=== PATIENT | male | born 1935 | race Caucasian/White ===

== ENCOUNTER 2017-07-14 10:30 | Inpatient (IN) ==
[2017-07-14] MEDS ORDERED: DIPH/TET/ACEL PERT BOOSTER VACCINE 0.5 ML VIAL IM ONE ×2 (10:52→11:42)
[2017-07-14 11:45] LABS: Basophils % 0.3 % (0.0-0.8); Hematocrit 32.1 VOL% (42.0-52.0); Hemoglobin 10.7 GM/DL (14.0-18.0); Immature Granulocytes % 0.9 %; Immature Granulocytes Absolute 0.14 #; Lymphocytes # 1.3 10*3/uL (1.4-4.0); Lymphocytes % 8.1 % (21.2-54.2); Mean Corpuscular HGB Conc 33.3 GM/DL (32-36); Mean Corpuscular Hemoglobin 32 PG (27-34); Mean Platelet Volume 9.2 FL (9.6-12.0); Monocytes % 6.5 % (1.7-12.7); Neutrophils # 13.2 10*3/uL (1.4-7.4); Neutrophils % 84.2 % (38.7-73.9); Platelet Count 228 T/CUMM (130-400); Red Blood Count 3.38 MC/CUMM (3.8-5.5); Red Cell Distribution Width 13.2 % (9.3-17.3); White Blood Count 15.6 T/CUMM (4-12)
[2017-07-14 11:57] LABS: INR 1.1; PT Patient Result 11.1 SECS; Partial Thromboplastin Time 25.2 SECS (0-40)
[2017-07-14 12:10] LABS: Albumin 4.1 G/DL (3.4-5.0); Bilirubin,Total 0.6 MG/DL (0.2-1.0); Osmolality,Calculated 289.1 MOS/KG (273-304); Potassium 3.7 MMOL/L (3.5-5.1); Total Protein 6.2 G/DL (6.4-8.3)
[2017-07-14] MEDS ORDERED: SODIUM CHLORIDE 0.9% 1,000 ML IV STA (12:10)
[2017-07-14] MEDS ORDERED: ONDANSETRON 4 MG/2 ML VIAL IV PRN (15:30)
[2017-07-14] MEDS ORDERED: ACETAMINOPHEN 325 MG TABLET PO PRN (15:30)
[2017-07-14] MEDS: oxyCODONE/ACETAMINOPHEN 5-325 MG TABLET PO PRN (17:30)
[2017-07-14] MEDS: SODIUM CHLORIDE 0.9% 1,000 ML IV SCH (17:31)
[2017-07-14] MEDS: GEMFIBROZIL 600 MG TABLET PO SCH (20:18)
[2017-07-14] MEDS: NIACIN ER 500 MG TABLET PO SCH (20:18)
[2017-07-14] MEDS: TAMSULOSIN 0.4 MG CAPSULE PO SCH (20:18)
[2017-07-14] MEDS: DOCUSATE SODIUM 100 MG CAPSULE PO SCH (20:18)
[2017-07-14] MEDS: GABAPENTIN 100 MG CAPSULE PO SCH (20:18)
[2017-07-14 21:51] LABS: Hematocrit 25.2 VOL% (42.0-52.0); Hemoglobin 8.4 GM/DL (14.0-18.0)
[2017-07-14] MEDS: fentaNYL 75 MCG/HR PATCH TRANSDERM SCH (22:01)
[2017-07-15] MEDS: oxyCODONE/ACETAMINOPHEN 5-325 MG TABLET PO PRN ×4 (00:11→22:00)
[2017-07-15] MEDS: SODIUM CHLORIDE 0.9% 1,000 ML IV SCH ×3 (01:36→18:30)
[2017-07-15] MEDS: LEVOTHYROXINE 125 MCG TABLET PO SCH (06:53)
[2017-07-15 07:20] LABS: Hematocrit 22.4 VOL% (42.0-52.0); Hemoglobin 7.5 GM/DL (14.0-18.0)
[2017-07-15 07:23] LABS: Basophils % 0.4 % (0.0-0.8); Eosinophils # 0.1 10*3/uL (0.0-0.87); Eosinophils % 1.5 % (0.00-10.9); Hematocrit 22.6 VOL% (42.0-52.0); Hemoglobin 7.4 GM/DL (14.0-18.0); Immature Granulocytes % 0.7 %; Immature Granulocytes Absolute 0.05 #; Lymphocytes # 2.1 10*3/uL (1.4-4.0); Lymphocytes % 29.5 % (21.2-54.2); Mean Corpuscular HGB Conc 32.7 GM/DL (32-36); Mean Corpuscular Hemoglobin 32 PG (27-34); Mean Corpuscular Volume 97.8 FL (87-102); Mean Platelet Volume 9.7 FL (9.6-12.0); Monocytes # 0.6 10*3/uL (0.11-0.8); Monocytes % 8.3 % (1.7-12.7); Neutrophils # 4.3 10*3/uL (1.4-7.4); Neutrophils % 59.6 % (38.7-73.9); Platelet Count 145 T/CUMM (130-400); Red Blood Count 2.31 MC/CUMM (3.8-5.5); Red Cell Distribution Width 13.6 % (9.3-17.3); White Blood Count 7.2 T/CUMM (4-12)
[2017-07-15] MEDS ORDERED: SODIUM CHLORIDE 0.9% 1,000 ML IV PRN (07:26)
[2017-07-15 08:44] LABS: Free T4 (Free Thyroxine) 0.97 NG/DL (0.76-1.46); Risk Ratio 1.5; Thyroid Stimulating Hormone 1.14 uIU/ml (0.358-3.74); VLDL CHOLESTEROL 14.4 MG/DL
[2017-07-15 08:50] LABS: Calcium 7.3 MG/DL (8.5-10.1); Osmolality,Calculated 284.1 MOS/KG (273-304); Potassium 3.4 MMOL/L (3.5-5.1)
[2017-07-15] MEDS: METOPROLOL SUCCINATE XL 25 MG TABLET PO SCH (09:50)
[2017-07-15] MEDS: DOCUSATE SODIUM 100 MG CAPSULE PO SCH ×2 (09:56→21:59)
[2017-07-15] MEDS: MULTIVITAMIN (CENTRUM) TABLET PO SCH (09:56)
[2017-07-15] MEDS: TAMSULOSIN 0.4 MG CAPSULE PO SCH ×2 (09:56→21:59)
[2017-07-15] MEDS: GABAPENTIN 100 MG CAPSULE PO SCH ×4 (09:56→22:00)
[2017-07-15] MEDS: GEMFIBROZIL 600 MG TABLET PO SCH ×2 (09:57→21:59)
[2017-07-15] MEDS: PANTOPRAZOLE 40 MG TABLET PO SCH (09:57)
[2017-07-15] MEDS: DEXT 5% NACL 0.45% KCL 20 MEQ 20 MEQ/1,000 ML BAG IV SCH (18:45)
[2017-07-15] MEDS: NIACIN ER 500 MG TABLET PO SCH (21:59)
[2017-07-15 23:44] LABS: Apearance,Urine CLEAR (Clear); Bilirubin,Urine Negative (Negative); Blood, Urine Negative (Negative); Glucose,Urine (UA) Negative (Negative); Ketones,Urine Negative (Negative); Mucus,Urine Occasional /LPF (Occasional); Nitrite,Urine Negative (Negative); Protein,Urine Negative; Urine Color Straw (Yellow); Urine Specific Gravity 1.006 (1.001-1.035); Urine Urobilinogen < 2.0 EU/DL (0.2-1.0); WBC,Urine 1 /HPF (0-6)
[2017-07-16 06:00] LABS: Calcium 7.7 MG/DL (8.5-10.1); Osmolality,Calculated 281.1 MOS/KG (273-304); Potassium 3.4 MMOL/L (3.5-5.1)
[2017-07-16] MEDS: DEXT 5% NACL 0.45% KCL 20 MEQ 20 MEQ/1,000 ML BAG IV SCH ×3 (06:10→22:36)
[2017-07-16] MEDS: LEVOTHYROXINE 125 MCG TABLET PO SCH (06:13)
[2017-07-16] MEDS: oxyCODONE/ACETAMINOPHEN 5-325 MG TABLET PO PRN ×3 (06:14→20:39)
[2017-07-16] MEDS: METOPROLOL SUCCINATE XL 25 MG TABLET PO SCH (10:18)
[2017-07-16] MEDS: PANTOPRAZOLE 40 MG TABLET PO SCH (10:18)
[2017-07-16] MEDS: GEMFIBROZIL 600 MG TABLET PO SCH ×2 (10:19→20:34)
[2017-07-16] MEDS: DOCUSATE SODIUM 100 MG CAPSULE PO SCH ×2 (10:20→20:34)
[2017-07-16] MEDS: TAMSULOSIN 0.4 MG CAPSULE PO SCH ×2 (10:20→20:34)
[2017-07-16] MEDS: MULTIVITAMIN (CENTRUM) TABLET PO SCH (10:21)
[2017-07-16] MEDS: GABAPENTIN 100 MG CAPSULE PO SCH ×4 (10:21→20:34)
[2017-07-16 10:49] LABS: Basophils # 0.1 10*3/uL (0.0-0.2); Basophils % 0.8 % (0.0-0.8); Eosinophils # 0.3 10*3/uL (0.0-0.87); Eosinophils % 4.4 % (0.00-10.9); Hemoglobin 9.7 GM/DL (14.0-18.0); Immature Granulocytes % 1.2 %; Immature Granulocytes Absolute 0.08 #; Lymphocytes # 1.8 10*3/uL (1.4-4.0); Lymphocytes % 27.3 % (21.2-54.2); Mean Corpuscular HGB Conc 33.4 GM/DL (32-36); Mean Corpuscular Hemoglobin 32 PG (27-34); Mean Corpuscular Volume 95.1 FL (87-102); Mean Platelet Volume 9.6 FL (9.6-12.0); Monocytes # 0.5 10*3/uL (0.11-0.8); Monocytes % 8.2 % (1.7-12.7); Neutrophils # 3.8 10*3/uL (1.4-7.4); Neutrophils % 58.1 % (38.7-73.9); Platelet Count 149 T/CUMM (130-400); Red Blood Count 3.05 MC/CUMM (3.8-5.5); Red Cell Distribution Width 15.1 % (9.3-17.3); White Blood Count 6.6 T/CUMM (4-12)
[2017-07-16] MEDS: POTASSIUM CHLORIDE 8 MEQ CAPSULE PO SCH (16:11)
[2017-07-16] MEDS: NIACIN ER 500 MG TABLET PO SCH (20:34)
[2017-07-17 06:12] LABS: Basophils # 0.1 10*3/uL (0.0-0.2); Basophils % 1.1 % (0.0-0.8); Eosinophils # 0.3 10*3/uL (0.0-0.87); Hematocrit 28.1 VOL% (42.0-52.0); Hemoglobin 9.7 GM/DL (14.0-18.0); Immature Granulocytes % 1.8 %; Lymphocytes # 1.7 10*3/uL (1.4-4.0); Lymphocytes % 30.1 % (21.2-54.2); Mean Corpuscular HGB Conc 34.5 GM/DL (32-36); Mean Corpuscular Hemoglobin 32 PG (27-34); Mean Corpuscular Volume 91.8 FL (87-102); Mean Platelet Volume 9.8 FL (9.6-12.0); Monocytes # 0.6 10*3/uL (0.11-0.8); Neutrophils # 2.8 10*3/uL (1.4-7.4); Platelet Count 169 T/CUMM (130-400); Red Blood Count 3.06 MC/CUMM (3.8-5.5); Red Cell Distribution Width 14.6 % (9.3-17.3); White Blood Count 5.5 T/CUMM (4-12)
[2017-07-17] MEDS: LEVOTHYROXINE 125 MCG TABLET PO SCH (06:16)
[2017-07-17 06:40] LABS: Osmolality,Calculated 280.1 MOS/KG (273-304); Potassium 3.8 MMOL/L (3.5-5.1)
[2017-07-17] MEDS: POTASSIUM CHLORIDE 8 MEQ CAPSULE PO SCH (09:12)
[2017-07-17] MEDS: oxyCODONE/ACETAMINOPHEN 5-325 MG TABLET PO PRN (09:13)
[2017-07-17] MEDS: MULTIVITAMIN (CENTRUM) TABLET PO SCH (09:14)
[2017-07-17] MEDS: DOCUSATE SODIUM 100 MG CAPSULE PO SCH (09:15)
[2017-07-17] MEDS: PANTOPRAZOLE 40 MG TABLET PO SCH (09:15)
[2017-07-17] MEDS: TAMSULOSIN 0.4 MG CAPSULE PO SCH (09:15)
[2017-07-17] MEDS: GEMFIBROZIL 600 MG TABLET PO SCH (09:16)
[2017-07-17] MEDS: fentaNYL 75 MCG/HR PATCH TRANSDERM SCH (09:16)
[2017-07-17] MEDS: METOPROLOL SUCCINATE XL 25 MG TABLET PO SCH (09:16)
[2017-07-17] MEDS: GABAPENTIN 100 MG CAPSULE PO SCH ×2 (09:19→12:59)
[2017-07-17 12:57] VITALS: BP 128/70
[2017-07-17] MEDS: DEXT 5% NACL 0.45% KCL 20 MEQ 20 MEQ/1,000 ML BAG IV SCH (12:59)
== END 2017-07-17 13:55 | disposition home or self-care (01) | DRG 605 ==
LOC: EDUNIT# → EDBD → N.ED 10:30 → N.EDINP 10:30 → N.4E 16:05
PROVIDERS: ADMIT Family Medicine; ATTEND Family Medicine

== ENCOUNTER 2019-09-21 12:27 | Inpatient (IN) ==
[2019-09-21] MEDS ORDERED: SODIUM CHLORIDE 0.9% 1,000 ML IV STA (13:08)
[2019-09-21] MEDS ORDERED: PANTOPRAZOLE 40 MG VIAL IV STA (13:09)
[2019-09-21 13:17] LABS: Basophils # 0.1 10*3/uL (0.0-0.2); Basophils % 0.4 % (0.0-0.8); Hematocrit 21.4 VOL% (42.0-52.0); Hemoglobin 6.6 GM/DL (14.0-18.0); Immature Granulocytes % 1.7 %; Immature Granulocytes Absolute 0.23 #; Lymphocytes # 1.9 10*3/uL (1.4-4.0); Lymphocytes % 14.7 % (21.2-54.2); Mean Corpuscular HGB Conc 30.8 GM/DL (32-36); Mean Corpuscular Volume 97.3 FL (87-102); Mean Platelet Volume 10.3 FL (9.6-12.0); Monocytes % 6.8 % (1.7-12.7); Neutrophils % 76.4 % (38.7-73.9); Platelet Count 269 T/CUMM (130-400); Red Cell Distribution Width 14.1 % (9.3-17.3); White Blood Count 13.2 T/CUMM (4-12)
[2019-09-21 13:24] LABS: PT Patient Result 10.7 SECS (9.6-12.2); Partial Thromboplastin Time 22.9 SECS (20.8-36.0)
[2019-09-21 13:40] LABS: Alanine Aminotransferase 14 U/L (16-61); Albumin 2.9 G/DL (3.4-5.0); Alkaline Phosphatase 75 U/L (45-117); Aspartate Amino Transferase 13 U/L (0-37); Bilirubin,Total < 0.39 MG/DL (0.2-1.0); Blood Urea Nitrogen 42 MG/DL (7-18); Calcium 7.6 MG/DL (8.5-10.1); Estimated Glom Filtration Rate 33 ML/MIN; Glucose 158 MG/DL (74-106); Total Protein 5.1 G/DL (6.4-8.3)
[2019-09-21] MEDS ORDERED: SODIUM CHLORIDE 0.9% 1,000 ML IV PRN (14:05)
[2019-09-21] MEDS ORDERED: ONDANSETRON 4 MG/2 ML VIAL IV PRN (14:27)
[2019-09-21] MEDS: SODIUM CHLORIDE 0.9% 1,000 ML IV SCH (16:00)
[2019-09-21] MEDS ORDERED: PANTOPRAZOLE INJ 80 MG in SODIUM CHLORIDE 0.9% 100 ML IV ONE (16:30)
[2019-09-21 17:11] LABS: Hematocrit 17.5 VOL% (42.0-52.0); Hemoglobin 5.6 GM/DL (14.0-18.0)
[2019-09-21] MEDS: ARIPiprazole 2 MG TABLET PO SCH (18:46)
[2019-09-21] MEDS: PANTOPRAZOLE INJ 200 MG in SODIUM CHLORIDE 0.9% 250 ML IV SCH (18:50)
[2019-09-21] MEDS: gemfibroziL 600 MG TABLET PO SCH (20:34)
[2019-09-21] MEDS: ACETAMINOPHEN 325 MG TABLET PO PRN (20:34)
[2019-09-21] MEDS: TAMSULOSIN 0.4 MG CAPSULE PO SCH (20:36)
[2019-09-21] MEDS: DOCUSATE SODIUM 100 MG CAPSULE PO SCH (20:36)
[2019-09-21] MEDS ORDERED: PANTOPRAZOLE 40 MG VIAL IV SCH (21:00)
[2019-09-22] MEDS: ACETAMINOPHEN 325 MG TABLET PO PRN ×2 (02:14→08:16)
[2019-09-22 05:05] LABS: Basophils # 0.1 10*3/uL (0.0-0.2); Basophils % 0.7 % (0.0-0.8); Hematocrit 27.1 VOL% (42.0-52.0); Immature Granulocytes % 1.5 %; Immature Granulocytes Absolute 0.14 #; Lymphocytes # 1.9 10*3/uL (1.4-4.0); Lymphocytes % 21.1 % (21.2-54.2); Mean Corpuscular HGB Conc 33.2 GM/DL (32-36); Mean Corpuscular Volume 89.1 FL (87-102); Mean Platelet Volume 10.2 FL (9.6-12.0); Neutrophils % 67.7 % (38.7-73.9); Platelet Count 172 T/CUMM (130-400); Red Blood Count 3.04 MC/CUMM (3.8-5.5); Red Cell Distribution Width 15.2 % (9.3-17.3); White Blood Count 9.2 T/CUMM (4-12)
[2019-09-22 05:15] LABS: PT Patient Result 10.6 SECS (9.6-12.2); Partial Thromboplastin Time 26.5 SECS (20.8-36.0)
[2019-09-22 05:57] LABS: Calcium 7.7 MG/DL (8.5-10.1); Osmolality,Calculated 280.8 MOS/KG (273-304)
[2019-09-22] MEDS: SODIUM CHLORIDE 0.9% 1,000 ML IV SCH ×4 (06:28→22:25)
[2019-09-22] MEDS: LEVOTHYROXINE 125 MCG TABLET PO SCH (06:29)
[2019-09-22] MEDS: DOCUSATE SODIUM 100 MG CAPSULE PO SCH ×2 (09:21→22:41)
[2019-09-22] MEDS: MULTIVITAMIN (CENTRUM) TABLET PO SCH (09:21)
[2019-09-22] MEDS: TAMSULOSIN 0.4 MG CAPSULE PO SCH ×2 (09:21→22:42)
[2019-09-22] MEDS: gemfibroziL 600 MG TABLET PO SCH ×2 (09:21→22:42)
[2019-09-22] MEDS: VENLAFAXINE XR 75 MG CAPSULE PO SCH (09:22)
[2019-09-22 09:49] LABS: Hematocrit 26.6 VOL% (42.0-52.0); Hemoglobin 8.4 GM/DL (14.0-18.0)
[2019-09-22] MEDS ORDERED: FUROSEMIDE 40 MG/4 ML VIAL IV PRN (10:40)
[2019-09-22] MEDS: fentaNYL 100 MCG/HR PATCH TRANSDERM SCH (13:00)
[2019-09-22 15:39] LABS: Hematocrit 27.2 VOL% (42.0-52.0); Hemoglobin 8.6 GM/DL (14.0-18.0)
[2019-09-22] MEDS: ARIPiprazole 2 MG TABLET PO SCH (18:28)
[2019-09-22] MEDS: PANTOPRAZOLE INJ 200 MG in SODIUM CHLORIDE 0.9% 250 ML IV SCH (21:52)
[2019-09-22 21:57] LABS: Hematocrit 26.4 VOL% (42.0-52.0); Hemoglobin 8.5 GM/DL (14.0-18.0)
[2019-09-23] MEDS ORDERED: hydrALAZINE 20 MG/1 ML VIAL IV PRN (05:17)
[2019-09-23] MEDS: METOPROLOL SUCCINATE XL 25 MG TABLET PO SCH (05:24)
[2019-09-23 05:35] LABS: Basophils # 0.1 10*3/uL (0.0-0.2); Basophils % 0.9 % (0.0-0.8); Hematocrit 26.9 VOL% (42.0-52.0); Hemoglobin 8.6 GM/DL (14.0-18.0); Immature Granulocytes % 1.4 %; Lymphocytes # 1.7 10*3/uL (1.4-4.0); Mean Corpuscular Volume 92.1 FL (87-102); Mean Platelet Volume 10.1 FL (9.6-12.0); Monocytes % 8.1 % (1.7-12.7); Neutrophils % 65.6 % (38.7-73.9); Platelet Count 173 T/CUMM (130-400); Red Blood Count 2.92 MC/CUMM (3.8-5.5); Red Cell Distribution Width 15.4 % (9.3-17.3); White Blood Count 7.1 T/CUMM (4-12)
[2019-09-23 05:39] LABS: Calcium 7.8 MG/DL (8.5-10.1); Osmolality,Calculated 282.1 MOS/KG (273-304)
[2019-09-23 06:01] LABS: INR 0.9; PT Patient Result 10.2 SECS (9.6-12.2)
[2019-09-23] MEDS: LEVOTHYROXINE 125 MCG TABLET PO SCH (06:29)
[2019-09-23] MEDS: SODIUM CHLORIDE 0.9% 1,000 ML IV SCH ×2 (06:51→17:25)
[2019-09-23] MEDS: gemfibroziL 600 MG TABLET PO SCH ×2 (09:23→21:11)
[2019-09-23] MEDS: MULTIVITAMIN (CENTRUM) TABLET PO SCH (09:24)
[2019-09-23] MEDS: VENLAFAXINE XR 75 MG CAPSULE PO SCH (09:24)
[2019-09-23] MEDS: TAMSULOSIN 0.4 MG CAPSULE PO SCH ×2 (09:24→21:11)
[2019-09-23] MEDS: DOCUSATE SODIUM 100 MG CAPSULE PO SCH ×2 (09:24→21:11)
[2019-09-23 09:49] LABS: Hematocrit 27.6 VOL% (42.0-52.0); Hemoglobin 8.7 GM/DL (14.0-18.0)
[2019-09-23 16:08] LABS: Hematocrit 26.5 VOL% (42.0-52.0); Hemoglobin 8.5 GM/DL (14.0-18.0)
[2019-09-23] MEDS: ARIPiprazole 2 MG TABLET PO SCH (18:47)
[2019-09-23] MEDS: PANTOPRAZOLE INJ 200 MG in SODIUM CHLORIDE 0.9% 250 ML IV SCH (21:11)
[2019-09-23 22:07] LABS: Hematocrit 26.5 VOL% (42.0-52.0); Hemoglobin 8.5 GM/DL (14.0-18.0)
[2019-09-24 05:08] LABS: INR 0.9; PT Patient Result 10.3 SECS (9.6-12.2)
[2019-09-24 05:13] LABS: Calcium 8.2 MG/DL (8.5-10.1); Osmolality,Calculated 270.8 MOS/KG (273-304)
[2019-09-24 06:47] LABS: Basophils # 0.1 10*3/uL (0.0-0.2); Basophils % 0.9 % (0.0-0.8); Hemoglobin 8.5 GM/DL (14.0-18.0); Immature Granulocytes % 1.5 %; Lymphocytes # 2.2 10*3/uL (1.4-4.0); Lymphocytes % 32.4 % (21.2-54.2); Mean Corpuscular HGB Conc 32.7 GM/DL (32-36); Mean Corpuscular Volume 91.2 FL (87-102); Mean Platelet Volume 9.8 FL (9.6-12.0); Monocytes % 9.8 % (1.7-12.7); Neutrophils % 55.4 % (38.7-73.9); Platelet Count 202 T/CUMM (130-400); Red Blood Count 2.85 MC/CUMM (3.8-5.5); Red Cell Distribution Width 15.4 % (9.3-17.3); White Blood Count 6.9 T/CUMM (4-12)
[2019-09-24] MEDS: LEVOTHYROXINE 125 MCG TABLET PO SCH (08:03)
[2019-09-24] MEDS: MULTIVITAMIN (CENTRUM) TABLET PO SCH (10:08)
[2019-09-24] MEDS: DOCUSATE SODIUM 100 MG CAPSULE PO SCH ×2 (10:09→20:16)
[2019-09-24] MEDS ORDERED: LIDOCAINE 2% 5 ML VIAL ONE (13:39)
[2019-09-24] MEDS ORDERED: propofoL 200 MG/20 ML VIAL IV ONE (13:40)
[2019-09-24] MEDS: oxyCODONE IR 5 MG TABLET PO SCH ×3 (15:02→20:16)
[2019-09-24] MEDS: VENLAFAXINE XR 75 MG CAPSULE PO SCH (15:02)
[2019-09-24] MEDS: TAMSULOSIN 0.4 MG CAPSULE PO SCH ×2 (15:02→20:16)
[2019-09-24] MEDS: gemfibroziL 600 MG TABLET PO SCH ×2 (15:02→20:16)
[2019-09-24] MEDS: METOPROLOL SUCCINATE XL 25 MG TABLET PO SCH (15:03)
[2019-09-24] MEDS: SODIUM CHLORIDE 0.9% 1,000 ML IV SCH ×2 (15:04→20:04)
[2019-09-24] MEDS: PANTOPRAZOLE INJ 200 MG in SODIUM CHLORIDE 0.9% 250 ML IV SCH (16:45)
[2019-09-24] MEDS: fentaNYL 100 MCG/HR PATCH TRANSDERM SCH (16:45)
[2019-09-24 17:55] LABS: Apearance,Urine CLEAR (Clear); Bacteria,Urine Occasional /HPF (Few); Bilirubin,Urine Negative (Negative); Blood, Urine Negative (Negative); Glucose,Urine (UA) Negative (Negative); Ketones,Urine Negative (Negative); Mucus,Urine Occasional /LPF (Occasional); Nitrite,Urine Negative (Negative); Protein,Urine Negative; Squamous Epithelial Cell,Urine Occasional /HPF (0-10); Urine Color Straw (Yellow); Urine Specific Gravity 1.005 (1.001-1.035); Urine Urobilinogen < 2.0 EU/DL (0.2-1.0); WBC,Urine 4 /HPF (0-6)
[2019-09-24] MEDS: ARIPiprazole 2 MG TABLET PO SCH (20:16)
[2019-09-25] MEDS: LEVOTHYROXINE 125 MCG TABLET PO SCH (06:08)
[2019-09-25 06:10] LABS: Basophils # 0.1 10*3/uL (0.0-0.2); Basophils % 1.2 % (0.0-0.8); Hemoglobin 8.2 GM/DL (14.0-18.0); Immature Granulocytes % 1.4 %; Immature Granulocytes Absolute 0.08 #; Lymphocytes # 1.8 10*3/uL (1.4-4.0); Lymphocytes % 30.7 % (21.2-54.2); Mean Corpuscular HGB Conc 31.5 GM/DL (32-36); Mean Corpuscular Volume 93.2 FL (87-102); Mean Platelet Volume 9.1 FL (9.6-12.0); Monocytes % 9.1 % (1.7-12.7); Neutrophils % 57.6 % (38.7-73.9); Platelet Count 204 T/CUMM (130-400); Red Blood Count 2.79 MC/CUMM (3.8-5.5); Red Cell Distribution Width 14.8 % (9.3-17.3); White Blood Count 5.7 T/CUMM (4-12)
[2019-09-25 06:48] LABS: % Iron Saturation 15.8 % (18-50); Ferritin 206.4 ng/ml (26-388); Free T4 (Free Thyroxine) 0.87 NG/DL (0.76-1.46); Thyroid Stimulating Hormone 2.99 uIU/ml (0.358-3.74)
[2019-09-25 06:55] LABS: Calcium 7.8 MG/DL (8.5-10.1); Osmolality,Calculated 273.5 MOS/KG (273-304)
[2019-09-25] MEDS: SODIUM CHLORIDE 0.9% 1,000 ML IV SCH (08:51)
[2019-09-25] MEDS: METOPROLOL SUCCINATE XL 25 MG TABLET PO SCH (08:52)
[2019-09-25] MEDS: DOCUSATE SODIUM 100 MG CAPSULE PO SCH ×2 (08:52→21:04)
[2019-09-25] MEDS: gemfibroziL 600 MG TABLET PO SCH ×2 (08:52→21:04)
[2019-09-25] MEDS: TAMSULOSIN 0.4 MG CAPSULE PO SCH ×2 (08:53→21:04)
[2019-09-25] MEDS: MULTIVITAMIN (CENTRUM) TABLET PO SCH (08:53)
[2019-09-25] MEDS: oxyCODONE IR 5 MG TABLET PO SCH ×3 (08:53→21:20)
[2019-09-25] MEDS: VENLAFAXINE XR 75 MG CAPSULE PO SCH (08:53)
[2019-09-25] MEDS: ARIPiprazole 2 MG TABLET PO SCH (18:37)
[2019-09-26] MEDS: SODIUM CHLORIDE 0.9% 1,000 ML IV SCH (03:48)
[2019-09-26 04:55] LABS: Basophils # 0.1 10*3/uL (0.0-0.2); Hematocrit 26.1 VOL% (42.0-52.0); Hemoglobin 8.6 GM/DL (14.0-18.0); Immature Granulocytes Absolute 0.07 #; Lymphocytes # 1.9 10*3/uL (1.4-4.0); Lymphocytes % 26.9 % (21.2-54.2); Mean Corpuscular Volume 90.9 FL (87-102); Mean Platelet Volume 9.4 FL (9.6-12.0); Monocytes % 9.8 % (1.7-12.7); Neutrophils % 61.3 % (38.7-73.9); Platelet Count 230 T/CUMM (130-400); Red Blood Count 2.87 MC/CUMM (3.8-5.5); Red Cell Distribution Width 14.8 % (9.3-17.3); White Blood Count 6.9 T/CUMM (4-12)
[2019-09-26 05:20] LABS: Osmolality,Calculated 275.7 MOS/KG (273-304)
[2019-09-26] MEDS: LEVOTHYROXINE 125 MCG TABLET PO SCH (07:06)
[2019-09-26] MEDS: oxyCODONE IR 5 MG TABLET PO SCH (08:32)
[2019-09-26] MEDS: VENLAFAXINE XR 75 MG CAPSULE PO SCH (08:33)
[2019-09-26] MEDS: TAMSULOSIN 0.4 MG CAPSULE PO SCH (08:33)
[2019-09-26] MEDS: DOCUSATE SODIUM 100 MG CAPSULE PO SCH (08:33)
[2019-09-26] MEDS: gemfibroziL 600 MG TABLET PO SCH (08:33)
[2019-09-26] MEDS: MULTIVITAMIN (CENTRUM) TABLET PO SCH (08:33)
[2019-09-26] MEDS: METOPROLOL SUCCINATE XL 25 MG TABLET PO SCH (08:33)
[2019-09-26 08:50] VITALS: BP 130/68
[2019-09-26] MEDS ORDERED: PANTOPRAZOLE 40 MG VIAL IV SCH (09:00)
== END 2019-09-26 10:44 | disposition home health service (06) | DRG 378 ==
LOC: EDBD → EDUNIT# → N.ED 12:27 → N.EDINP 14:27 → N.CC 15:03 → N.4E 09-23 15:40
PROVIDERS: ADMIT Family Medicine; ATTEND Family Medicine

== ENCOUNTER 2019-10-02 10:28 | Observation (INO) ==
[2019-10-02] MEDS ORDERED: SODIUM CHLORIDE 0.9% 500 ML IV STA (10:59)
[2019-10-02 11:28] LABS: Basophils # 0.1 10*3/uL (0.0-0.2); Basophils % 0.5 % (0.0-0.8); Hematocrit 23.5 VOL% (42.0-52.0); Hemoglobin 7.2 GM/DL (14.0-18.0); Immature Granulocytes % 1.7 %; Lymphocytes # 1.1 10*3/uL (1.4-4.0); Lymphocytes % 9.2 % (21.2-54.2); Mean Corpuscular HGB Conc 30.6 GM/DL (32-36); Mean Corpuscular Volume 95.9 FL (87-102); Mean Platelet Volume 9.3 FL (9.6-12.0); Monocytes % 6.9 % (1.7-12.7); Neutrophils % 81.7 % (38.7-73.9); Platelet Count 340 T/CUMM (130-400); Red Blood Count 2.45 MC/CUMM (3.8-5.5); Red Cell Distribution Width 15.6 % (9.3-17.3); White Blood Count 11.5 T/CUMM (4-12)
[2019-10-02 11:47] LABS: Calcium 8.1 MG/DL (8.5-10.1); Osmolality,Calculated 282.4 MOS/KG (273-304)
[2019-10-02] MEDS ORDERED: SODIUM CHLORIDE 0.9% 1,000 ML IV PRN (11:47)
[2019-10-02] MEDS ORDERED: ONDANSETRON 4 MG/2 ML VIAL IV PRN (11:53)
[2019-10-02] MEDS ORDERED: ACETAMINOPHEN 325 MG TABLET PO PRN (11:53)
[2019-10-02] MEDS ORDERED: SODIUM CHLORIDE 0.9% 1,000 ML IV SCH (12:00)
[2019-10-02 12:10] LABS: PT Patient Result 10.6 SECS (9.8-11.9)
[2019-10-02] MEDS ORDERED: GABAPENTIN 100 MG CAPSULE PO PRN (13:47)
[2019-10-02] MEDS: oxyCODONE IR 5 MG TABLET PO SCH ×2 (14:01→20:12)
[2019-10-02 16:55] LABS: Apearance,Urine CLEAR (Clear); Bacteria,Urine Occasional /HPF (Few); Bilirubin,Urine Negative (Negative); Blood, Urine Negative (Negative); Glucose,Urine (UA) Negative (Negative); Hyaline Casts,Urine 1 /LPF (0-3); Ketones,Urine Negative (Negative); Mucus,Urine Occasional /LPF (Occasional); Nitrite,Urine Negative (Negative); Protein,Urine Negative; RBC,Urine 2 /HPF (0-4); Urine Color Yellow (Yellow); Urine Specific Gravity 1.011 (1.001-1.035); Urine Urobilinogen < 2.0 EU/DL (0.2-1.0); WBC,Urine 8 /HPF (0-6)
[2019-10-02 19:32] LABS: Hematocrit 27.6 VOL% (42.0-52.0)
[2019-10-02 19:33] LABS: Hemoglobin 8.8 GM/DL (14.0-18.0)
[2019-10-02] MEDS: gemfibroziL 600 MG TABLET PO SCH (20:12)
[2019-10-02] MEDS: DOCUSATE SODIUM 100 MG CAPSULE PO SCH (20:12)
[2019-10-02] MEDS: NIACIN ER 500 MG TABLET PO SCH (20:12)
[2019-10-02] MEDS: TAMSULOSIN 0.4 MG CAPSULE PO SCH (20:12)
[2019-10-02] MEDS: FERROUS SULFATE ER 140 MG TABLET PO SCH (20:12)
[2019-10-02] MEDS: ARIPiprazole 2 MG TABLET PO SCH (20:12)
[2019-10-02] MEDS: SODIUM CHLOR 0.9% KCL 20 MEQ 20 MEQ/1,000 ML BAG IV SCH (20:18)
[2019-10-03] MEDS: SODIUM CHLOR 0.9% KCL 20 MEQ 20 MEQ/1,000 ML BAG IV SCH ×3 (02:21→19:01)
[2019-10-03 02:35] LABS: Basophils # 0.1 10*3/uL (0.0-0.2); Basophils % 0.9 % (0.0-0.8); Hematocrit 25.7 VOL% (42.0-52.0); Hemoglobin 8.4 GM/DL (14.0-18.0); Immature Granulocytes % 1.1 %; Immature Granulocytes Absolute 0.11 #; Lymphocytes # 2.1 10*3/uL (1.4-4.0); Lymphocytes % 20.2 % (21.2-54.2); Mean Corpuscular HGB Conc 32.7 GM/DL (32-36); Mean Corpuscular Volume 89.9 FL (87-102); Mean Platelet Volume 9.4 FL (9.6-12.0); Monocytes % 7.3 % (1.7-12.7); Neutrophils % 70.5 % (38.7-73.9); Platelet Count 281 T/CUMM (130-400); Red Blood Count 2.86 MC/CUMM (3.8-5.5); Red Cell Distribution Width 16.7 % (9.3-17.3); White Blood Count 10.3 T/CUMM (4-12)
[2019-10-03 02:50] LABS: Albumin 2.9 G/DL (3.4-5.0); Bilirubin,Total 0.7 MG/DL (0.2-1.0); Calcium 7.6 MG/DL (8.5-10.1); Osmolality,Calculated 282.4 MOS/KG (273-304); Thyroid Stimulating Hormone 1.62 uIU/ml (0.358-3.74); Total Protein 5.8 G/DL (6.4-8.3)
[2019-10-03] MEDS: LEVOTHYROXINE 125 MCG TABLET PO SCH (06:24)
[2019-10-03] MEDS: oxyCODONE IR 5 MG TABLET PO SCH ×3 (08:03→21:05)
[2019-10-03] MEDS: fentaNYL 100 MCG/HR PATCH TRANSDERM SCH (08:44)
[2019-10-03] MEDS: MULTIVITAMIN (CENTRUM) TABLET PO SCH (08:45)
[2019-10-03] MEDS: PANTOPRAZOLE 40 MG TABLET PO SCH (08:45)
[2019-10-03] MEDS: FERROUS SULFATE ER 140 MG TABLET PO SCH ×2 (08:45→21:06)
[2019-10-03] MEDS: DOCUSATE SODIUM 100 MG CAPSULE PO SCH ×2 (08:45→21:05)
[2019-10-03] MEDS: METOPROLOL SUCCINATE XL 25 MG TABLET PO SCH (08:45)
[2019-10-03] MEDS: gemfibroziL 600 MG TABLET PO SCH ×2 (08:45→21:05)
[2019-10-03] MEDS: TAMSULOSIN 0.4 MG CAPSULE PO SCH ×2 (08:45→21:06)
[2019-10-03] MEDS: VENLAFAXINE XR 75 MG CAPSULE PO SCH (08:45)
[2019-10-03] MEDS ORDERED: BISACODYL 5 MG TABLET PO ONE (12:00)
[2019-10-03] MEDS ORDERED: POLYETHYLENE GLYCOL POWDER 255 GM BOTTLE PO ONE (14:00)
[2019-10-03] MEDS: ARIPiprazole 2 MG TABLET PO SCH (21:06)
[2019-10-03] MEDS: NIACIN ER 500 MG TABLET PO SCH (21:06)
[2019-10-04] MEDS: SODIUM CHLOR 0.9% KCL 20 MEQ 20 MEQ/1,000 ML BAG IV SCH ×3 (03:08→20:35)
[2019-10-04 05:44] LABS: Basophils # 0.1 10*3/uL (0.0-0.2); Hematocrit 24.8 VOL% (42.0-52.0); Immature Granulocytes % 1.7 %; Immature Granulocytes Absolute 0.14 #; Lymphocytes # 1.8 10*3/uL (1.4-4.0); Lymphocytes % 22.9 % (21.2-54.2); Mean Corpuscular HGB Conc 32.3 GM/DL (32-36); Mean Corpuscular Volume 92.5 FL (87-102); Mean Platelet Volume 8.9 FL (9.6-12.0); Monocytes % 8.9 % (1.7-12.7); Neutrophils % 65.5 % (38.7-73.9); Platelet Count 246 T/CUMM (130-400); Red Blood Count 2.68 MC/CUMM (3.8-5.5); Red Cell Distribution Width 16.7 % (9.3-17.3)
[2019-10-04 05:45] LABS: PT Patient Result 10.5 SECS (9.8-11.9)
[2019-10-04] MEDS ORDERED: MAGNESIUM CITRATE 300 ML BOTTLE PO ONE (06:00)
[2019-10-04] MEDS: LEVOTHYROXINE 125 MCG TABLET PO SCH (06:06)
[2019-10-04 06:15] LABS: Albumin 2.9 G/DL (3.4-5.0); Calcium 8.1 MG/DL (8.5-10.1); Osmolality,Calculated 275.5 MOS/KG (273-304)
[2019-10-04] MEDS: METOPROLOL SUCCINATE XL 25 MG TABLET PO SCH (08:28)
[2019-10-04] MEDS: TAMSULOSIN 0.4 MG CAPSULE PO SCH ×2 (08:28→20:37)
[2019-10-04] MEDS: MULTIVITAMIN (CENTRUM) TABLET PO SCH (08:30)
[2019-10-04] MEDS: DOCUSATE SODIUM 100 MG CAPSULE PO SCH ×2 (08:30→20:37)
[2019-10-04] MEDS: FERROUS SULFATE ER 140 MG TABLET PO SCH ×2 (08:31→20:37)
[2019-10-04] MEDS: VENLAFAXINE XR 75 MG CAPSULE PO SCH (08:31)
[2019-10-04] MEDS: gemfibroziL 600 MG TABLET PO SCH ×2 (08:31→20:37)
[2019-10-04] MEDS: PANTOPRAZOLE 40 MG TABLET PO SCH (08:31)
[2019-10-04] MEDS: LACTATED RINGERS 1,000 ML IV SCH (09:47)
[2019-10-04] MEDS: oxyCODONE IR 5 MG TABLET PO SCH ×3 (09:48→20:37)
[2019-10-04] MEDS ORDERED: ETOMIDATE 20 MG/10 ML VIAL IV ONE (10:00)
[2019-10-04] MEDS ORDERED: PHENYLEPHRINE 1 MG/10 ML SYRINGE IV ONE (10:00)
[2019-10-04] MEDS ORDERED: LIDOCAINE 100 MG/5 ML SYRINGE ONE (10:00)
[2019-10-04] MEDS ORDERED: propofoL 200 MG/20 ML VIAL IV ONE (10:00)
[2019-10-04] MEDS: NIACIN ER 500 MG TABLET PO SCH (20:37)
[2019-10-04] MEDS: ARIPiprazole 2 MG TABLET PO SCH (20:37)
[2019-10-05] MEDS: SODIUM CHLOR 0.9% KCL 20 MEQ 20 MEQ/1,000 ML BAG IV SCH ×2 (04:38→12:47)
[2019-10-05 05:32] LABS: Basophils # 0.1 10*3/uL (0.0-0.2); Hematocrit 25.3 VOL% (42.0-52.0); Hemoglobin 7.7 GM/DL (14.0-18.0); Immature Granulocytes % 1.9 %; Immature Granulocytes Absolute 0.12 #; Lymphocytes # 1.7 10*3/uL (1.4-4.0); Mean Corpuscular HGB Conc 30.4 GM/DL (32-36); Mean Corpuscular Volume 94.4 FL (87-102); Mean Platelet Volume 9.1 FL (9.6-12.0); Monocytes % 9.1 % (1.7-12.7); Platelet Count 261 T/CUMM (130-400); Red Blood Count 2.68 MC/CUMM (3.8-5.5); Red Cell Distribution Width 16.4 % (9.3-17.3); White Blood Count 6.3 T/CUMM (4-12)
[2019-10-05 05:54] LABS: Calcium 8.1 MG/DL (8.5-10.1); Osmolality,Calculated 274.7 MOS/KG (273-304)
[2019-10-05] MEDS: fentaNYL 100 MCG/HR PATCH TRANSDERM SCH (09:11)
[2019-10-05] MEDS: oxyCODONE IR 5 MG TABLET PO SCH ×3 (09:12→21:16)
[2019-10-05] MEDS: FERROUS SULFATE ER 140 MG TABLET PO SCH ×2 (09:12→21:17)
[2019-10-05] MEDS: gemfibroziL 600 MG TABLET PO SCH ×2 (09:12→21:17)
[2019-10-05] MEDS: METOPROLOL SUCCINATE XL 25 MG TABLET PO SCH (09:12)
[2019-10-05] MEDS: VENLAFAXINE XR 75 MG CAPSULE PO SCH (09:12)
[2019-10-05] MEDS: PANTOPRAZOLE 40 MG TABLET PO SCH (09:12)
[2019-10-05] MEDS: MULTIVITAMIN (CENTRUM) TABLET PO SCH (09:12)
[2019-10-05] MEDS: LEVOTHYROXINE 125 MCG TABLET PO SCH (09:12)
[2019-10-05] MEDS: TAMSULOSIN 0.4 MG CAPSULE PO SCH ×2 (09:12→21:17)
[2019-10-05] MEDS: DOCUSATE SODIUM 100 MG CAPSULE PO SCH ×2 (09:12→21:16)
[2019-10-05] MEDS ORDERED: SODIUM CHLORIDE 0.9% 1,000 ML IV PRN (11:56)
[2019-10-05] MEDS: LACTATED RINGERS 1,000 ML IV SCH (13:20)
[2019-10-05] MEDS ORDERED: cloNIDine 0.1 MG TABLET PO SCH (21:00)
[2019-10-05] MEDS: ARIPiprazole 2 MG TABLET PO SCH (21:17)
[2019-10-05] MEDS: NIACIN ER 500 MG TABLET PO SCH (21:17)
[2019-10-06] MEDS: SODIUM CHLOR 0.9% KCL 20 MEQ 20 MEQ/1,000 ML BAG IV SCH ×3 (00:57→11:56)
[2019-10-06 04:54] LABS: Calcium 8.4 MG/DL (8.5-10.1); Osmolality,Calculated 272.1 MOS/KG (273-304)
[2019-10-06 05:21] LABS: Basophils # 0.1 10*3/uL (0.0-0.2); Basophils % 0.7 % (0.0-0.8); Eosinophils % 0.1 % (0.00-10.9); Hematocrit 29.8 VOL% (42.0-52.0); Hemoglobin 9.3 GM/DL (14.0-18.0); Immature Granulocytes % 1.5 %; Immature Granulocytes Absolute 0.11 #; Lymphocytes # 1.9 10*3/uL (1.4-4.0); Lymphocytes % 25.3 % (21.2-54.2); Mean Corpuscular HGB Conc 31.2 GM/DL (32-36); Mean Corpuscular Volume 94.3 FL (87-102); Mean Platelet Volume 9.2 FL (9.6-12.0); Monocytes % 8.7 % (1.7-12.7); Neutrophils % 63.7 % (38.7-73.9); Platelet Count 266 T/CUMM (130-400); Red Blood Count 3.16 MC/CUMM (3.8-5.5); Red Cell Distribution Width 15.8 % (9.3-17.3); White Blood Count 7.5 T/CUMM (4-12)
[2019-10-06] MEDS: LEVOTHYROXINE 125 MCG TABLET PO SCH (06:03)
[2019-10-06] MEDS: FERROUS SULFATE ER 140 MG TABLET PO SCH (09:54)
[2019-10-06] MEDS: VENLAFAXINE XR 75 MG CAPSULE PO SCH (09:56)
[2019-10-06] MEDS: gemfibroziL 600 MG TABLET PO SCH (09:56)
[2019-10-06] MEDS: MULTIVITAMIN (CENTRUM) TABLET PO SCH (09:56)
[2019-10-06] MEDS: PANTOPRAZOLE 40 MG TABLET PO SCH (09:57)
[2019-10-06] MEDS: TAMSULOSIN 0.4 MG CAPSULE PO SCH (09:57)
[2019-10-06] MEDS: DOCUSATE SODIUM 100 MG CAPSULE PO SCH (09:57)
[2019-10-06] MEDS: METOPROLOL SUCCINATE XL 25 MG TABLET PO SCH (09:57)
[2019-10-06] MEDS: oxyCODONE IR 5 MG TABLET PO SCH ×2 (09:58→14:55)
[2019-10-06] MEDS: LACTATED RINGERS 1,000 ML IV SCH (10:03)
[2019-10-06 12:23] VITALS: BP 158/63
== END 2019-10-06 15:06 | disposition home or self-care (01) ==
LOC: EDBD → EDUNIT# → N.ED 10:28 → N.EDINP 10:28 → N.3E 12:18
PROVIDERS: ADMIT Family Medicine; ATTEND Family Medicine

== ENCOUNTER 2021-08-10 17:01 | Inpatient (IN) ==
[2021-08-10] MEDS ORDERED: PANTOPRAZOLE 40 MG VIAL IV STA (18:45)
[2021-08-10] MEDS ORDERED: ONDANSETRON 4 MG/2 ML VIAL IV STA (18:45)
[2021-08-10] MEDS ORDERED: SODIUM CHLORIDE 0.9% 1,000 ML IV STA (18:45)
[2021-08-10 19:09] LABS: Alanine Aminotransferase 17 U/L (16-61); Albumin 3.1 G/DL (3.4-5.0); Alkaline Phosphatase 116 U/L (45-117); Amylase 24 U/L (25-115); Aspartate Amino Transferase 21 U/L (0-37); Blood Urea Nitrogen 32 MG/DL (7-18); Calcium 8.4 MG/DL (8.5-10.1); Carbon Dioxide 26 MMOL/L (21-32); Estimated Glom Filtration Rate 73 ML/MIN; Glucose 130 MG/DL (74-106); Osmolality,Calculated 276.2 MOS/KG (273-304); Potassium 3.5 MMOL/L (3.5-5.1); Sodium 134 MMOL/L (136-145); Total Protein 6.1 G/DL (6.4-8.2)
[2021-08-10 19:28] LABS: Basophils % 0.2 % (0.0-0.8); Hematocrit 35.2 VOL% (42.0-52.0); Hemoglobin 11.9 GM/DL (14.0-18.0); Immature Granulocytes % 0.8 %; Immature Granulocytes Absolute 0.15 #; Lymphocytes # 1.4 10*3/uL (1.4-4.0); Lymphocytes % 7.3 % (21.2-54.2); Mean Corpuscular HGB Conc 33.8 GM/DL (32-36); Mean Corpuscular Volume 89.6 FL (87-102); Mean Platelet Volume 10.3 FL (9.6-12.0); Monocytes % 6.6 % (1.7-12.7); Neutrophils % 85.1 % (38.7-73.9); Platelet Count 293 T/CUMM (130-400); Red Blood Count 3.93 MC/CUMM (3.8-5.5); Red Cell Distribution Width 13.3 % (9.3-17.3); White Blood Count 19.2 T/CUMM (4-12)
[2021-08-10] MEDS ORDERED: PIPERACILLIN/TAZOBACTAM 3,375 MG in SODIUM CHLORIDE 0.9% 100 ML IV STA (19:40)
[2021-08-10] MEDS ORDERED: HYDROmorphone 2 MG/1 ML VIAL ONE (20:17)
[2021-08-10] MEDS ORDERED: ACETAMINOPHEN 325 MG TABLET PO PRN (20:24)
[2021-08-10] MEDS ORDERED: ONDANSETRON 4 MG/2 ML VIAL IV PRN (20:24)
[2021-08-10] MEDS ORDERED: HYDROmorphone 2 MG/1 ML VIAL IV STA (20:25)
[2021-08-10] MEDS: DOCUSATE SODIUM 100 MG CAPSULE PO SCH (21:41)
[2021-08-10] MEDS: SODIUM CHLORIDE 0.9% 1,000 ML IV SCH (21:41)
[2021-08-11 01:43] LABS: Bilirubin,Urine Negative (Negative); Blood, Urine Negative (Negative); Glucose,Urine (UA) Negative (Negative); Ketones,Urine 5 mg/dL (Negative); Nitrite,Urine Negative (Negative); Protein,Urine Negative; RBC,Urine 6 /HPF (0-4); Urine Appearance CLEAR (Clear); Urine Color Yellow (Yellow); Urine Specific Gravity 1.015 (1.001-1.035); Urine Urobilinogen < 2.0 EU/DL (<2.0)
[2021-08-11 04:25] LABS: Basophils % 0.2 % (0.0-0.8); Eosinophils % 0.1 % (0.00-10.9); Hematocrit 32.1 VOL% (42.0-52.0); Hemoglobin 10.4 GM/DL (14.0-18.0); Immature Granulocytes % 0.8 %; Immature Granulocytes Absolute 0.14 #; Mean Corpuscular HGB Conc 32.4 GM/DL (32-36); Mean Corpuscular Volume 93.3 FL (87-102); Mean Platelet Volume 9.7 FL (9.6-12.0); Monocytes % 6.9 % (1.7-12.7); Platelet Count 252 T/CUMM (130-400); Red Blood Count 3.44 MC/CUMM (3.8-5.5); Red Cell Distribution Width 13.5 % (9.3-17.3); White Blood Count 16.6 T/CUMM (4-12)
[2021-08-11 04:43] LABS: Albumin 2.5 G/DL (3.4-5.0); Bilirubin,Total 0.4 MG/DL (0.20-1.00); Calcium 7.7 MG/DL (8.5-10.1); Potassium 3.4 MMOL/L (3.5-5.1); Risk Ratio 1.44; Total Protein 5.6 G/DL (6.4-8.2); VLDL Cholesterol 11.2 MG/DL
[2021-08-11] MEDS: SODIUM CHLORIDE 0.9% 1,000 ML IV SCH (05:45)
[2021-08-11] MEDS: PIPERACILLIN/TAZOBACTAM 3,375 MG in SODIUM CHLORIDE 0.9% 100 ML IV SCH ×3 (06:51→21:23)
[2021-08-11] MEDS: PANTOPRAZOLE 40 MG VIAL IV SCH (09:36)
[2021-08-11] MEDS: DOCUSATE SODIUM 100 MG CAPSULE PO SCH ×2 (09:38→21:22)
[2021-08-11] MEDS: SODIUM CHLOR 0.9% KCL 20 MEQ 20 MEQ/1,000 ML BAG IV SCH ×2 (09:40→17:57)
[2021-08-11] MEDS: POTASSIUM CHLORIDE RIDER 10 MEQ/100 ML PREMIX IV SCH (10:29)
[2021-08-11] MEDS ORDERED: fentaNYL 100 MCG/HR PATCH TRANSDERM SCH (14:30)
[2021-08-11] MEDS: ZINC OXIDE PASTE 113 GM TUBE TOP SCH ×2 (17:05→21:23)
[2021-08-11] MEDS: GABAPENTIN 100 MG CAPSULE PO SCH ×2 (17:57→21:22)
[2021-08-11] MEDS: oxyCODONE IR 5 MG TABLET PO SCH (21:22)
[2021-08-11] MEDS: NIACIN ER 500 MG TABLET PO SCH (21:22)
[2021-08-11] MEDS: gemfibroziL 600 MG TABLET PO SCH (21:22)
[2021-08-11] MEDS: TAMSULOSIN 0.4 MG CAPSULE PO SCH (21:22)
[2021-08-12] MEDS: SODIUM CHLOR 0.9% KCL 20 MEQ 20 MEQ/1,000 ML BAG IV SCH ×4 (01:35→23:22)
[2021-08-12] MEDS: PIPERACILLIN/TAZOBACTAM 3,375 MG in SODIUM CHLORIDE 0.9% 100 ML IV SCH ×3 (04:14→22:12)
[2021-08-12] MEDS: LEVOTHYROXINE 125 MCG TABLET PO SCH (06:23)
[2021-08-12 06:43] LABS: Basophils % 0.3 % (0.0-0.8); Eosinophils # 0.1 10*3/uL (0.0-0.87); Eosinophils % 0.6 % (0.00-10.9); Hematocrit 34.8 VOL% (42.0-52.0); Hemoglobin 11.2 GM/DL (14.0-18.0); Immature Granulocytes % 0.9 %; Immature Granulocytes Absolute 0.12 #; Mean Corpuscular HGB Conc 32.2 GM/DL (32-36); Mean Corpuscular Volume 95.1 FL (87-102); Mean Platelet Volume 10.6 FL (9.6-12.0); Monocytes % 7.4 % (1.7-12.7); Neutrophils % 76.8 % (38.7-73.9); Platelet Count 283 T/CUMM (130-400); Red Blood Count 3.66 MC/CUMM (3.8-5.5); Red Cell Distribution Width 13.8 % (9.3-17.3); White Blood Count 14.1 T/CUMM (4-12)
[2021-08-12 07:03] LABS: Albumin 2.5 G/DL (3.4-5.0); Bilirubin,Total 0.9 MG/DL (0.20-1.00); Calcium 7.9 MG/DL (8.5-10.1); Osmolality,Calculated 281.3 MOS/KG (273-304); Potassium 3.2 MMOL/L (3.5-5.1); Total Protein 5.7 G/DL (6.4-8.2)
[2021-08-12] MEDS ORDERED: SKIN HEALING OINT (AQUAPHOR) 50 GM TUBE TOP PRN (09:59)
[2021-08-12] MEDS: GABAPENTIN 100 MG CAPSULE PO SCH ×4 (10:09→22:16)
[2021-08-12] MEDS: VENLAFAXINE XR 75 MG CAPSULE PO SCH (10:09)
[2021-08-12] MEDS: gemfibroziL 600 MG TABLET PO SCH ×2 (10:09→22:16)
[2021-08-12] MEDS: TAMSULOSIN 0.4 MG CAPSULE PO SCH ×2 (10:09→22:15)
[2021-08-12] MEDS: MULTIVITAMIN (CENTRUM) TABLET PO SCH (10:10)
[2021-08-12] MEDS: PANTOPRAZOLE 40 MG VIAL IV SCH (10:10)
[2021-08-12] MEDS: METOPROLOL SUCCINATE XL 25 MG TABLET PO SCH (10:10)
[2021-08-12] MEDS: DOCUSATE SODIUM 100 MG CAPSULE PO SCH ×2 (10:11→22:15)
[2021-08-12] MEDS: oxyCODONE IR 5 MG TABLET PO SCH ×3 (10:11→22:15)
[2021-08-12] MEDS: ZINC OXIDE PASTE 113 GM TUBE TOP SCH ×2 (10:32→22:16)
[2021-08-12 17:56] LABS: Hematocrit 27.4 VOL% (42.0-52.0)
[2021-08-12] MEDS: fentaNYL 75 MCG/HR PATCH TRANSDERM SCH (18:19)
[2021-08-12] MEDS: NIACIN ER 500 MG TABLET PO SCH (22:15)
[2021-08-13 05:39] LABS: Basophils % 0.5 % (0.0-0.8); Eosinophils # 0.4 10*3/uL (0.0-0.87); Eosinophils % 4.7 % (0.00-10.9); Hematocrit 26.2 VOL% (42.0-52.0); Hemoglobin 8.3 GM/DL (14.0-18.0); Immature Granulocytes % 1.2 %; Lymphocytes # 2.3 10*3/uL (1.4-4.0); Lymphocytes % 28.2 % (21.2-54.2); Mean Corpuscular HGB Conc 31.7 GM/DL (32-36); Mean Corpuscular Volume 95.6 FL (87-102); Monocytes % 8.3 % (1.7-12.7); Neutrophils % 57.1 % (38.7-73.9); Platelet Count 208 T/CUMM (130-400); Red Blood Count 2.74 MC/CUMM (3.8-5.5); Red Cell Distribution Width 13.7 % (9.3-17.3); White Blood Count 8.3 T/CUMM (4-12)
[2021-08-13 06:00] LABS: Alanine Aminotransferase 42 U/L (16-61); Albumin 1.9 G/DL (3.4-5.0); Alkaline Phosphatase 78 U/L (45-117); Aspartate Amino Transferase 53 U/L (0-37); Bilirubin,Total < 0.39 MG/DL (0.20-1.00); Blood Urea Nitrogen 19 MG/DL (7-18); Calcium 7.4 MG/DL (8.5-10.1); Carbon Dioxide 19 MMOL/L (21-32); Estimated Glom Filtration Rate 88 ML/MIN; Glucose 81 MG/DL (74-106); Potassium 3.8 MMOL/L (3.5-5.1); Sodium 136 MMOL/L (136-145); Total Protein 4.7 G/DL (6.4-8.2)
[2021-08-13] MEDS: SODIUM CHLOR 0.9% KCL 20 MEQ 20 MEQ/1,000 ML BAG IV SCH ×2 (06:15→15:07)
[2021-08-13] MEDS: LEVOTHYROXINE 125 MCG TABLET PO SCH (06:16)
[2021-08-13] MEDS: PIPERACILLIN/TAZOBACTAM 3,375 MG in SODIUM CHLORIDE 0.9% 100 ML IV SCH ×3 (06:17→22:17)
[2021-08-13 06:21] LABS: Thyroid Stimulating Hormone 2.8 uIU/ml (0.358-3.74)
[2021-08-13 08:38] LABS: Hematocrit 24.8 VOL% (42.0-52.0); Hemoglobin 7.8 GM/DL (14.0-18.0)
[2021-08-13] MEDS: oxyCODONE IR 5 MG TABLET PO SCH ×3 (09:26→22:15)
[2021-08-13] MEDS: ZINC OXIDE PASTE 113 GM TUBE TOP SCH ×2 (09:26→22:16)
[2021-08-13] MEDS: PANTOPRAZOLE 40 MG VIAL IV SCH (09:32)
[2021-08-13] MEDS: LACTATED RINGERS 1,000 ML IV SCH (12:56)
[2021-08-13] MEDS ORDERED: LIDOCAINE 2% 5 ML VIAL ONE (13:30)
[2021-08-13] MEDS ORDERED: propofoL 200 MG/20 ML VIAL IV ONE (13:30)
[2021-08-13 14:46] LABS: Hematocrit 26.1 VOL% (42.0-52.0); Hemoglobin 8.3 GM/DL (14.0-18.0)
[2021-08-13] MEDS: GABAPENTIN 100 MG CAPSULE PO SCH ×4 (14:59→22:15)
[2021-08-13] MEDS: DOCUSATE SODIUM 100 MG CAPSULE PO SCH ×2 (14:59→22:15)
[2021-08-13] MEDS: MULTIVITAMIN (CENTRUM) TABLET PO SCH (14:59)
[2021-08-13] MEDS: TAMSULOSIN 0.4 MG CAPSULE PO SCH ×2 (14:59→22:15)
[2021-08-13] MEDS: METOPROLOL SUCCINATE XL 25 MG TABLET PO SCH (14:59)
[2021-08-13] MEDS: VENLAFAXINE XR 75 MG CAPSULE PO SCH (15:03)
[2021-08-13] MEDS: gemfibroziL 600 MG TABLET PO SCH ×2 (15:03→22:15)
[2021-08-13] MEDS: NIACIN ER 500 MG TABLET PO SCH (22:15)
[2021-08-14] MEDS: SODIUM CHLOR 0.9% KCL 20 MEQ 20 MEQ/1,000 ML BAG IV SCH ×4 (00:48→20:47)
[2021-08-14 05:08] LABS: Basophils # 0.1 10*3/uL (0.0-0.2); Basophils % 1.3 % (0.0-0.8); Eosinophils # 0.5 10*3/uL (0.0-0.87); Eosinophils % 7.7 % (0.00-10.9); Hematocrit 27.4 VOL% (42.0-52.0); Hemoglobin 8.7 GM/DL (14.0-18.0); Immature Granulocytes % 2.7 %; Immature Granulocytes Absolute 0.19 #; Lymphocytes # 2.3 10*3/uL (1.4-4.0); Lymphocytes % 32.7 % (21.2-54.2); Mean Corpuscular HGB Conc 31.8 GM/DL (32-36); Mean Corpuscular Volume 95.8 FL (87-102); Mean Platelet Volume 9.7 FL (9.6-12.0); Monocytes % 9.3 % (1.7-12.7); Neutrophils % 46.3 % (38.7-73.9); Platelet Count 228 T/CUMM (130-400); Red Blood Count 2.86 MC/CUMM (3.8-5.5); Red Cell Distribution Width 13.5 % (9.3-17.3)
[2021-08-14 05:26] LABS: Calcium 7.2 MG/DL (8.5-10.1); Osmolality,Calculated 275.5 MOS/KG (273-304); Potassium 3.6 MMOL/L (3.5-5.1)
[2021-08-14] MEDS: LEVOTHYROXINE 125 MCG TABLET PO SCH (07:00)
[2021-08-14] MEDS: PIPERACILLIN/TAZOBACTAM 3,375 MG in SODIUM CHLORIDE 0.9% 100 ML IV SCH ×3 (07:02→20:44)
[2021-08-14] MEDS: VENLAFAXINE XR 75 MG CAPSULE PO SCH (09:40)
[2021-08-14] MEDS: oxyCODONE IR 5 MG TABLET PO SCH ×3 (09:41→20:43)
[2021-08-14] MEDS: METOPROLOL SUCCINATE XL 25 MG TABLET PO SCH (09:42)
[2021-08-14] MEDS: DOCUSATE SODIUM 100 MG CAPSULE PO SCH ×2 (09:42→20:43)
[2021-08-14] MEDS: MULTIVITAMIN (CENTRUM) TABLET PO SCH (09:42)
[2021-08-14] MEDS: GABAPENTIN 100 MG CAPSULE PO SCH ×4 (09:42→20:43)
[2021-08-14] MEDS: PANTOPRAZOLE 40 MG VIAL IV SCH (09:43)
[2021-08-14] MEDS: TAMSULOSIN 0.4 MG CAPSULE PO SCH ×2 (09:43→20:43)
[2021-08-14] MEDS: gemfibroziL 600 MG TABLET PO SCH ×2 (09:43→20:43)
[2021-08-14] MEDS: ZINC OXIDE PASTE 113 GM TUBE TOP SCH ×2 (09:44→20:44)
[2021-08-14] MEDS: SUCRALFATE 1 GM/10 ML UDCUP PO SCH ×3 (11:40→20:59)
[2021-08-14] MEDS: LACTATED RINGERS 1,000 ML IV SCH (12:46)
[2021-08-14] MEDS: NIACIN ER 500 MG TABLET PO SCH (20:43)
[2021-08-15] MEDS: SODIUM CHLOR 0.9% KCL 20 MEQ 20 MEQ/1,000 ML BAG IV SCH ×4 (04:46→20:58)
[2021-08-15] MEDS: PIPERACILLIN/TAZOBACTAM 3,375 MG in SODIUM CHLORIDE 0.9% 100 ML IV SCH ×3 (05:33→20:47)
[2021-08-15] MEDS: LEVOTHYROXINE 125 MCG TABLET PO SCH (05:35)
[2021-08-15 05:49] LABS: Basophils # 0.1 10*3/uL (0.0-0.2); Basophils % 1.1 % (0.0-0.8); Eosinophils # 0.5 10*3/uL (0.0-0.87); Eosinophils % 6.1 % (0.00-10.9); Hematocrit 29.6 VOL% (42.0-52.0); Hemoglobin 9.4 GM/DL (14.0-18.0); Immature Granulocytes % 3.9 %; Immature Granulocytes Absolute 0.32 #; Lymphocytes # 2.7 10*3/uL (1.4-4.0); Lymphocytes % 33.2 % (21.2-54.2); Mean Corpuscular HGB Conc 31.8 GM/DL (32-36); Mean Platelet Volume 9.7 FL (9.6-12.0); Monocytes % 11.2 % (1.7-12.7); Neutrophils % 44.5 % (38.7-73.9); Platelet Count 267 T/CUMM (130-400); Red Blood Count 3.15 MC/CUMM (3.8-5.5); Red Cell Distribution Width 13.6 % (9.3-17.3); White Blood Count 8.2 T/CUMM (4-12)
[2021-08-15 06:17] LABS: Calcium 7.3 MG/DL (8.5-10.1); Osmolality,Calculated 273.5 MOS/KG (273-304); Potassium 3.4 MMOL/L (3.5-5.1)
[2021-08-15] MEDS: SUCRALFATE 1 GM/10 ML UDCUP PO SCH ×4 (07:32→20:47)
[2021-08-15] MEDS: LACTATED RINGERS 1,000 ML IV SCH (08:22)
[2021-08-15] MEDS: oxyCODONE IR 5 MG TABLET PO SCH ×3 (10:02→20:45)
[2021-08-15] MEDS: MULTIVITAMIN (CENTRUM) TABLET PO SCH (10:03)
[2021-08-15] MEDS: GABAPENTIN 100 MG CAPSULE PO SCH ×4 (10:03→20:45)
[2021-08-15] MEDS: METOPROLOL SUCCINATE XL 25 MG TABLET PO SCH (10:03)
[2021-08-15] MEDS: VENLAFAXINE XR 75 MG CAPSULE PO SCH (10:03)
[2021-08-15] MEDS: TAMSULOSIN 0.4 MG CAPSULE PO SCH ×2 (10:03→20:45)
[2021-08-15] MEDS: gemfibroziL 600 MG TABLET PO SCH ×2 (10:04→20:45)
[2021-08-15] MEDS: DOCUSATE SODIUM 100 MG CAPSULE PO SCH ×2 (10:04→20:45)
[2021-08-15] MEDS: PANTOPRAZOLE 40 MG VIAL IV SCH (10:38)
[2021-08-15] MEDS: ZINC OXIDE PASTE 113 GM TUBE TOP SCH ×2 (10:41→20:47)
[2021-08-15] MEDS: fentaNYL 75 MCG/HR PATCH TRANSDERM SCH (17:15)
[2021-08-15] MEDS: NIACIN ER 500 MG TABLET PO SCH (20:45)
[2021-08-16] MEDS: PIPERACILLIN/TAZOBACTAM 3,375 MG in SODIUM CHLORIDE 0.9% 100 ML IV SCH ×3 (04:20→20:14)
[2021-08-16] MEDS: SODIUM CHLOR 0.9% KCL 20 MEQ 20 MEQ/1,000 ML BAG IV SCH ×3 (04:21→21:43)
[2021-08-16] MEDS: LEVOTHYROXINE 125 MCG TABLET PO SCH (05:52)
[2021-08-16] MEDS: SUCRALFATE 1 GM/10 ML UDCUP PO SCH ×4 (08:20→20:13)
[2021-08-16] MEDS: METOPROLOL SUCCINATE XL 25 MG TABLET PO SCH (09:02)
[2021-08-16] MEDS: ZINC OXIDE PASTE 113 GM TUBE TOP SCH ×2 (09:02→20:13)
[2021-08-16] MEDS: GABAPENTIN 100 MG CAPSULE PO SCH ×4 (09:02→20:13)
[2021-08-16] MEDS: DOCUSATE SODIUM 100 MG CAPSULE PO SCH ×2 (09:02→20:13)
[2021-08-16] MEDS: TAMSULOSIN 0.4 MG CAPSULE PO SCH ×2 (09:02→20:13)
[2021-08-16] MEDS: gemfibroziL 600 MG TABLET PO SCH ×2 (09:03→20:13)
[2021-08-16] MEDS: MULTIVITAMIN (CENTRUM) TABLET PO SCH (09:03)
[2021-08-16] MEDS: VENLAFAXINE XR 75 MG CAPSULE PO SCH (09:03)
[2021-08-16] MEDS: PANTOPRAZOLE 40 MG VIAL IV SCH (09:04)
[2021-08-16] MEDS: oxyCODONE IR 5 MG TABLET PO SCH ×3 (09:04→20:13)
[2021-08-16] MEDS ORDERED: POTASSIUM CHLORIDE 20 MEQ TABLET PO ONE (09:48)
[2021-08-16] MEDS: LACTATED RINGERS 1,000 ML IV SCH (10:24)
[2021-08-16] MEDS: NIACIN ER 500 MG TABLET PO SCH (20:13)
[2021-08-17] MEDS: PIPERACILLIN/TAZOBACTAM 3,375 MG in SODIUM CHLORIDE 0.9% 100 ML IV SCH (05:52)
[2021-08-17] MEDS: SODIUM CHLOR 0.9% KCL 20 MEQ 20 MEQ/1,000 ML BAG IV SCH ×2 (05:52→14:08)
[2021-08-17] MEDS: LEVOTHYROXINE 125 MCG TABLET PO SCH (05:53)
[2021-08-17 05:54] LABS: Basophils % 0.3 % (0.0-0.8); Eosinophils # 0.6 10*3/uL (0.0-0.87); Eosinophils % 5.5 % (0.00-10.9); Hematocrit 25.9 VOL% (42.0-52.0); Hemoglobin 8.2 GM/DL (14.0-18.0); Immature Granulocytes % 6.4 %; Immature Granulocytes Absolute 0.65 #; Lymphocytes # 2.6 10*3/uL (1.4-4.0); Lymphocytes % 25.7 % (21.2-54.2); Mean Corpuscular HGB Conc 31.7 GM/DL (32-36); Mean Corpuscular Volume 96.3 FL (87-102); Mean Platelet Volume 9.4 FL (9.6-12.0); Monocytes % 11.1 % (1.7-12.7); Platelet Count 257 T/CUMM (130-400); Red Blood Count 2.69 MC/CUMM (3.8-5.5); White Blood Count 10.2 T/CUMM (4-12)
[2021-08-17 06:18] LABS: Calcium 7.6 MG/DL (8.5-10.1); Potassium 3.8 MMOL/L (3.5-5.1)
[2021-08-17 06:29] LABS: Eosinophils 2 % (0-10); Hypochromia 1+; Lymphocytes 26 % (20-55); Microcytosis 1+; Platelet Estimate Adequate; Segmented Neutrophils 61 % (50-85); Total Cells Counted 100
[2021-08-17] MEDS: gemfibroziL 600 MG TABLET PO SCH (10:00)
[2021-08-17] MEDS: SUCRALFATE 1 GM/10 ML UDCUP PO SCH ×2 (10:00→14:21)
[2021-08-17] MEDS: GABAPENTIN 100 MG CAPSULE PO SCH ×2 (10:00→14:22)
[2021-08-17] MEDS: METOPROLOL SUCCINATE XL 25 MG TABLET PO SCH (10:00)
[2021-08-17] MEDS: DOCUSATE SODIUM 100 MG CAPSULE PO SCH (10:00)
[2021-08-17] MEDS: oxyCODONE IR 5 MG TABLET PO SCH ×2 (10:00→14:22)
[2021-08-17] MEDS: TAMSULOSIN 0.4 MG CAPSULE PO SCH (10:00)
[2021-08-17] MEDS: MULTIVITAMIN (CENTRUM) TABLET PO SCH (10:00)
[2021-08-17] MEDS: PANTOPRAZOLE 40 MG VIAL IV SCH (10:00)
[2021-08-17] MEDS: VENLAFAXINE XR 75 MG CAPSULE PO SCH (10:00)
[2021-08-17] MEDS: ZINC OXIDE PASTE 113 GM TUBE TOP SCH (10:30)
[2021-08-17 12:43] VITALS: BP 131/53
== END 2021-08-17 15:35 | disposition swing bed (61) | DRG 384 ==
LOC: EDBD → EDUNIT# → N.EDINP 17:01 → N.ED 17:01 → N.EDINP 08-11 19:45 → N.TELEN 08-11 19:54
PROVIDERS: ADMIT Family Medicine; ATTEND Family Medicine